=== PATIENT | female | born 1995 | race Caucasian/White ===

== ENCOUNTER 2018-05-24 21:39 | Emergency (ER) | payer SELFPAY ==
[2018-05-24 22:03] VITALS: BP 114/79
--- NOTE | 2018-05-24 22:22 | ED ---
GI/ HPI - HPI Summary HPI Summary: pt presents to the ED for evaluation of dysuria. she states it started yesterday after she had sex. she denies any lesions, sores, or any std. she denies any fever, chills, n/v or vaginal discharge. - History of Current Complaint Chief Complaint: UCGU Stated Complaint: URINARY Hx Obtained From: Patient Onset/Duration: Started Days Ago Timing: Intermittent Severity: Mild Current Severity: Mild Pain Intensity: 6 - Allergy/Home Medications Allergies/Adverse Reactions: Allergies Allergy/AdvReac Type Severity Reaction Status Date / Time No Known Allergies Allergy Verified 05/24/18 22:04 Home Medications: Home Medications Levonorgestrel (Iud) [Mirena IUD] 20 mcg DAILY 05/24/18 [History Confirmed 05/24] PMH/Surg Hx/FS Hx/Imm Hx Previously Healthy: Yes Endocrine/Hematology History: Denies: Hx Anticoagulant Therapy Cardiovascular History: Denies: Hx Aneurysm Respiratory History: Denies: Hx Asthma GI History: Denies: Hx Cirrhosis History: Denies: Hx Acute Renal Failure Musculoskeletal History: Denies: Hx Arthritis Sensory History: Denies: Hx Cataracts EENT History: Denies: Hx Deafness Neurological History: Denies: Hx CVA Psychiatric History: Denies: Hx Anxiety Infectious Disease History: No Infectious Disease History: Denies: Traveled Outside the [place] in Last 30 Days - Social History Alcohol Use: Occasionally Substance Use Type: Reports: None Smoking Status (MU): Never Smoked Tobacco Review of Systems Constitutional: Negative Eyes: Negative ENT: Negative Cardiovascular: Negative Respiratory: Negative Gastrointestinal: Negative Positive: dysuria Musculoskeletal: Negative Skin: Negative Neurological: Negative Psychological: Normal All Other Systems Reviewed And Are Negative: No Physical Exam Triage Information Reviewed: Yes Vital Signs On Initial Exam: Initial Vitals Temp Pulse Resp BP Pulse Ox 98.2 F 73 16 114/79 100 05/24/18 21:58 05/24/18 21:58 05/24/18 21:58 05/24/18 21:58 05/24/18 21:58 Vital Signs Reviewed: Yes Appearance: Positive: Well-Appearing, No Pain Distress, Well-Nourished Skin: Positive: Warm, Dry Head/Face: Positive: Normal Head/Face Inspection Eyes: Positive: Normal, EOMI, NAOMY ENT: Positive: Normal ENT inspection, Hearing grossly normal, Pharynx normal Neck: Positive: Supple, Nontender Respiratory/Lung Sounds: Positive: Clear to Auscultation, Breath Sounds Present Cardiovascular: Positive: Normal, RRR Abdomen Description: Positive: Nontender, Soft Pelvic Exam: Positive: External Exam Normal, Other - pt deferred the bimanual and the pelvic exam Musculoskeletal: Positive: Normal Neurological: Positive: Normal, Sensory/Motor Intact, CN Intact II-III Psychiatric: Positive: Normal AVPU Assessment: Alert Diagnostics - Vital Signs Vital Signs Temp Pulse Resp BP Pulse Ox 05/24/18 21:58 98.2 F 73 16 114/79 100 - Laboratory Lab Results: Lab Results 05/24/18 05/24/18 Range/Units 22:08 22:10 POC Urine Color Yellow POC Urine Clarity Clear POC Urine pH 6.0 (5-9) POC Ur Specif Wesley >= 1.030 (1.010-1.030) POC Urine Protein Trace A (Negative) POC Ur Glucose (UA) Negative (Negative) POC Urine Ketones Trace A (Negative) POC Urine Blood Negative (Negative) POC Urine Nitrite Negative (Negative) POC Urine Bilirubin Negative (Negative) POC Urine Urobilinogen 0.2 (Negative) POC U Leukocyte Esteras Negative (Negative) POC Ur Test Negative (Negative) Lab Statement: Any lab studies that have been ordered have been reviewed, and results considered in the medical decision making process. GIGU Course/Dx - Course Course Of Treatment: no external ulcerations noted during external genitalia exam. pt encouraged to have a pelvic done at her pcp. her urine does not show a uti. Pt states that these are the symptoms she gets when she has a uti. I informed her that I would send a rx to the pharmacy for keflex. she should not fill unless she has persistent symptoms. she can fill in 24 hours if this is the case. pt voiced understanding of instructions. - Diagnoses Differential Diagnoses - Female: STD, Other - pyelonephritis, herpes, Provider Diagnoses: Dysuria Discharge - Sign-Out/Discharge Documenting (check all that apply): Patient Departure All imaging exams completed and their final reports reviewed: No Studies - Discharge Plan Condition: Stable Disposition: HOME Prescriptions: Cephalexin CAP* [Keflex CAP*] 500 mg PO TID #21 cap Patient Education Materials: Dysuria (ED) Referrals: No Primary Care Phys,NOPCP [Primary Care Provider] - Additional Instructions: take tylenol and motrin for pain. return if worse or any new symptoms. if you have persistent symptoms, then you can go fill the prescription in 24 hours. you should have a pelvic exam done by your primary care physician. - Billing Disposition and Condition Condition: STABLE Disposition: Home
== END 2018-05-24 22:36 | disposition home or self-care (01) ==
LOC: UCCORT 21:39
DX: R30.0 Dysuria (principal)
CPT/HCPCS: 81003; 84702; 99202; G0463